=== PATIENT | female | born 1990 | race Asian ===

== ENCOUNTER 2018-03-30 10:59 | Emergency (ER) | payer OTHER ==
[~2018-03-30] VITALS: Ht 160 cm; Wt 52.6 kg
[2018-03-30 11:06] VITALS: Ht 160 cm; Wt 52.6 kg
[2018-03-30 11:46] LABS: BASOPHIL % 1.5 % (0-2); PLATELET COUNT 319 x10^3mcL (130-400); RED CELL DISTRIBUTION WIDTH 13.2 % (11.5-14.5)
[2018-03-30 12:07] LABS: microscopic required? NO
[2018-03-30 12:20] LABS: CALCIUM 9.1 mg/dL (8.5-10.1); CARBON DIOXIDE 25.4 mmol/L (21-32); CHLORIDE SERUM 101 mmol/L (98-107); CREATININE SERUM 0.7 mg/dL (0.6-1.0); GFR1 > 60 mL/min; GLUCOSE SERUM 76 mg/dL (74-106); POTASSIUM SERUM 4.2 mmol/L (3.5-5.1); SODIUM SERUM 135 mmol/L (136-145)
[2018-03-30 12:24] LABS: ALBUMIN 4.4 g/dL (3.4-5.0); ALKALINE PHOSPHATASE 159 U/L (46-116); ALT/SGPT 23 U/L (14-59); AST/SGOT 13 U/L (15-37); BILIRUBIN TOTAL 0.91 mg/dL (0.20-1.00); LIPASE 131 IU/L (73-393)
[2018-03-30 12:28] LABS: urine erythrocyte NEGATIVE (NEGATIVE)
[2018-03-30 12:36] LABS: TOTAL PROTEIN, SERUM 8.3 g/dL (6.4-8.2)
[2018-03-30 15:29] VITALS: BP 98/67
== END 2018-03-30 15:29 | disposition home or self-care (01) ==
LOC: ED 10:59
PROVIDERS: Emergency Medicine
DX: R10.13 Epigastric pain (principal); R11.0 Nausea; R63.0 Anorexia
CPT/HCPCS: J2405; J7030; Q9967

== ENCOUNTER 2018-07-11 03:09 | Emergency (ER) | payer OTHER ==
[~2018-07-11] VITALS: Ht 160 cm; Wt 54.0 kg
[2018-07-11 03:15] VITALS: Ht 160 cm; Wt 54.0 kg
[2018-07-11 03:55] LABS: BASOPHIL % 1.1 % (0-2); PLATELET COUNT 277 x10^3mcL (130-400)
[2018-07-11 03:56] LABS: UA SPECIFIC GRAVITY >=1.030 (1.005-1.035); microscopic required? YES; urine erythrocyte 1+ (NEGATIVE)
[2018-07-11 04:05] LABS: AMPHETAMINE QUAL UR NONE DETECTED (See below)
[2018-07-11 04:06] LABS: CARBON DIOXIDE 30.1 mmol/L (21-32); CHLORIDE SERUM 105 mmol/L (98-107); CREATININE SERUM 0.9 mg/dL (0.6-1.0); GFR1 > 60 mL/min; GLUCOSE SERUM 103 mg/dL (74-106); POTASSIUM SERUM 3.4 mmol/L (3.5-5.1); SODIUM SERUM 143 mmol/L (136-145)
[2018-07-11 04:20] LABS: ALBUMIN 3.7 g/dL (3.4-5.0); ALKALINE PHOSPHATASE 62 U/L (46-116); ALT/SGPT 24 U/L (14-59); AST/SGOT 23 U/L (15-37); FREE T4 1.16 ng/dL (0.76-1.46); TOTAL PROTEIN, SERUM 7.4 g/dL (6.4-8.2)
[2018-07-11 05:36] VITALS: BP 104/77
== END 2018-07-11 06:24 | disposition home or self-care (01) ==
LOC: ED 03:09
PROVIDERS: Emergency Medicine
DX: R55 Syncope and collapse (principal); N39.0 Urinary tract infection, site not specified; E86.0 Dehydration
CPT/HCPCS: 84439; G0480

== ENCOUNTER 2018-08-21 13:21 | Emergency (ER) | payer OTHER ==
[~2018-08-21] VITALS: Ht 160 cm; Wt 55.8 kg
[2018-08-21 13:51] VITALS: BP 135/78; Ht 160 cm; Wt 55.8 kg
== END 2018-08-21 15:45 | disposition home or self-care (01) ==
LOC: ED 13:21
DX: S02.2XXA Fracture of nasal bones, initial encounter for closed fracture (principal); N39.0 Urinary tract infection, site not specified; J40 Bronchitis, not specified as acute or chronic; X58.XXXA Exposure to other specified factors, initial encounter; Y93.89 Activity, other specified; Y92.89 Other specified places as the place of occurrence of the external cause; Y99.8 Other external cause status
CPT/HCPCS: J7512